=== PATIENT | female | born 1960 | race Caucasian/White ===

== ENCOUNTER 2018-09-22 12:52 | Emergency (ER) | payer OTHER ==
[~2018-09-22] VITALS: Ht 162.6 cm; Wt 92.0 kg
[~2018-09-22 12:52] MED LIST: GABA300C16 PO
[2018-09-22 13:30] VITALS: Ht 162.6 cm; Wt 92.0 kg
--- NOTE | 2018-09-22 16:36 | ERD ---
ER Documentation Chief Complaint Chief Complaint LOW BACK WITH POOR APPETITE & VOMTING HPI 58-year-old female, previously healthy, presents to the emergency department, complaining of lower back pain associated with nausea and vomiting for 3 days. The patient has history of diabetes, chronic back pain, GERD and depression. She also reports history of asthma, however denies fevers, no chills, no upper respiratory symptoms. The patient believes that the symptoms started after the patient received a prescription for tramadol, feeling very nauseous after taking the medication. ROS All systems reviewed and are negative except as per history of present illness. Medications Home Meds Active Scripts Gabapentin* (Gabapentin*) 300 Mg Capsule, 300 MG PO BID, #30 CAP Prov:NILA CULP PA-C 08/18/18 Allergies Allergies: Coded Allergies: Tetanus Vaccines and Toxoid (Verified Allergy, Unknown, 08/18/18) codeine (Verified Allergy, Unknown, 08/18/18) PMhx/Soc History of Surgery: Yes ( x2, breast biopsy) Anesthesia Reaction: No Hx Neurological Disorder: No Hx Respiratory Disorders: Yes (asthma) Hx Cardiac Disorders: Yes (htn, hld) Hx Miscellaneous Medical Probl: Yes (dm, sciatic pain, GERD, depression) Hx Alcohol Use: No Hx Substance Use: No Hx Tobacco Use: No Physical Exam Vitals Vital Signs Date Temp Pulse Resp B/P (MAP) Pulse Ox O2 O2 Flow FiO2 Time Delivery Rate 09/22/18 97.1 100 18 124/79 98 13:30 (94) Physical Exam Const: No acute distress Head: Atraumatic Eyes: Normal Conjunctiva ENT: Normal External Ears, Nose and Mouth. Neck: Full range of motion. No meningismus. Resp: Clear to auscultation bilaterally Cardio: Regular rate and rhythm, no murmurs Abd: Soft, non tender, non distended. Normal bowel sounds Skin: No petechiae or rashes Back: No midline or flank tenderness Ext: No cyanosis, or edema Neur: Awake and alert Psych: Normal Mood and Affect Result Diagram: 09/22/18170409/22/182031 Results 24 hrs Laboratory Tests Test 09/22/18 17:05 09/22/18 20:32 White Blood Count 10.5 10^3/ul Red Blood Count 5.15 10^6/ul Hemoglobin 15.1 g/dl Hematocrit 46.1 % Mean Corpuscular Volume 89.5 fl Mean Corpuscular Hemoglobin 29.3 pg Mean Corpuscular Hemoglobin Concent 32.8 g/dl Red Cell Distribution Width 13.0 % Platelet Count 255 10^3/UL Mean Platelet Volume 11.6 fl Immature Granulocytes % 0.500 % Neutrophils % 71.4 % Lymphocytes % 19.6 % Monocytes % 7.1 % Eosinophils % 0.9 % Basophils % 0.5 % Nucleated Red Blood Cells % 0.0 /100WBC Immature Granulocytes # 0.050 10^3/ul Neutrophils # 7.5 10^3/ul Lymphocytes # 2.1 10^3/ul Monocytes # 0.8 10^3/ul Eosinophils # 0.1 10^3/ul Basophils # 0.1 10^3/ul Nucleated Red Blood Cells # 0.0 10^3/ul Sodium Level 145 mmol/L 143 mmol/L Potassium Level 3.5 mmol/L 3.4 mmol/L Chloride Level 98 mmol/L 103 mmol/L Carbon Dioxide Level 27 mmol/L 25 mmol/L Anion Gap 20 15 Blood Urea Nitrogen 47 mg/dl 45 mg/dl Creatinine 2.86 mg/dl 2.50 mg/dl Est Glomerular Filtrat Rate mL/min 17 mL/min 20 mL/min Glucose Level 134 mg/dl 110 mg/dl Calcium Level 11.7 mg/dl 9.7 mg/dl Total Bilirubin 0.3 mg/dl Direct Bilirubin 0.00 mg/dl Indirect Bilirubin 0.3 mg/dl Aspartate Amino Transf (AST/SGOT) 74 IU/L Alanine Aminotransferase (ALT/SGPT) 65 IU/L Alkaline Phosphatase 143 IU/L Total Protein 10.1 g/dl Albumin 5.4 g/dl Globulin 4.70 g/dl Albumin/Globulin Ratio 1.14 Lipase 104 U/L Current Medications Medications Dose Sig/Oleksandr Start Time Status Last (Trade) Ordered Route PRN Stop Time Admin Dose Reason Admin Sodium 1,000 ml @ Q1H STAT 09/22/18 DC 09/22/18 Chloride 1,000 mls/hr IV 16:49 17:19 09/22/18 17:48 Ondansetron 4 mg ONCE STAT 09/22/18 DC 09/22/18 HCl (Zofran IV 16:49 17:20 Inj) 09/22/18 16:50 Sodium 1,000 ml @ Q1H ONCE 09/22/18 DC 09/22/18 Chloride 1,000 mls/hr IV 18:30 19:11 09/22/18 19:29 Procedures/MDM Physical exam unremarkable, patient in no distress, adequate oral intake, abdomen, soft, nontender, no peritoneal signs. Differential diagnosis include but not limited to: gastrointestinal infection bacterial/viral, UTI, appendicitis, colitis, food poisoning, food intolerance, side effect of medication. Low suspicion for acute abdomen. Physical examination and clinical presentation consistent most likely with dehydration, most likely a side effect of medication. During the ED course the patient remained stable, overall improvement of the symptoms after receiving treatment in the emergency department with IV fluids. Clinical impression discussed with the patient who agrees with management. The patient is stable to be discharged home. The patient requires a follow up with the primary care provider in the next 48h. If symptoms persist, worsen or new symptoms develop, then patient should return to the ED immediately. Disclaimer: Inadvertent spelling and grammatical errors are likely due to EHR/dictation software use and do not reflect on the overall quality of patient care. Also, please note that the electronic time recorded on this note does not necessarily reflect the actual time of the patient encounter. Departure Diagnosis: Primary Impression: Dehydration Condition: Stable Additional Instructions: Thank you very much for allowing us to participate in your care. Your health and safety is our top priority at [facility]. Call your primary care doctor TOMORROW for an appointment during the next 2-4 days and bring all the information and medications prescribed. Have prescriptions filled and follow precisely the directions on the label. If the symptoms get worse and your provider is unavailable, return to the Emergency Department immediately. PETERSON FRAZIER MD Sep 22, 2018 16:36
[2018-09-22] MEDS ORDERED: SOD CHLORIDE 0.9% 1,000 ML IV STA (16:49)
[2018-09-22] MEDS ORDERED: ONDANSETRON 4 MG INJ IV STA (16:49)
[2018-09-22] MEDS ORDERED: SOD CHLORIDE 0.9% 1,000 ML IV ONE (18:30)
[2018-09-22 21:56] VITALS: BP 140/65; PULSE 80; RESP 15
== END 2018-09-22 21:56 | disposition home or self-care (01) ==
LOC: FTE 12:52
DX: E86.0 Dehydration (principal); J45.909 Unspecified asthma, uncomplicated; I10 Essential (primary) hypertension; E11.9 Type 2 diabetes mellitus without complications
CPT/HCPCS: 36415; 80048; 80053; 83690; 85025; 96374; 99284; J2405; J7030